=== PATIENT | female | born 1990 | race Caucasian/White ===

== ENCOUNTER 2021-11-04 12:08 | Emergency (ER) | payer OTHER, SELFPAY ==
[2021-11-04 12:11] VITALS: BP 115/69; PULSE 63; RESP 20; TEMP 36.6; O2SAT 100
[2021-11-04 12:50] LABS: Abs Immature Grans 0.01 10^3/uL (0.0-0.06); Absolute Basophil Count 0.04 10^3/uL (0.0-0.2); Absolute Eosinophil Count 0.09 10^3/uL (0.0-0.7); Absolute Lymphocyte Count 1.52 10^3/uL (1.2-3.4); Absolute Monocyte Count 0.51 10^3/uL (0.1-0.8); Absolute Neutrophil Count 2.69 10^3/uL (1.2-6.7); Basophils % 0.8; Eosinophils % 1.9; HCT 43.5 % (36.0-46.0); HGB 13.8 g/dL (11.2-15.7); Immature Grans % 0.2; Lymphocytes % 31.3; MCH 30.5 pg (27.0-33.0); MCHC 31.7 % (32.0-36.0); MCV 96.2 fL (80-95); MPV 10.5 fL (8.0-11.0); Monocytes % 10.5; Neutrophils % 55.3; Nucleated RBC 0 %; Platelet Count 205 10^3/uL (130-400); RBC 4.52 10^6/uL (3.93-5.22); RDW 13.1 % (11.7-14.6); RDW-SD 46.7 fL; WBC 4.86 10^3/uL (4.4-10.8)
[2021-11-04 12:51] LABS: Bilirubin Negative (Negative); Blood Large (Negative); Clarity Clear (Clear); Glucose Negative (Negative); Ketones Negative (Negative); Leukocyte Esterase Negative (Negative); Nitrite Negative (Negative); Specific Gravity >= 1.030 (1.005-1.025); Urobilinogen 0.2 EU/dL (Up TO 0.2); pH 6.5 (5-8)
[2021-11-04 12:59] LABS: Bacteria Negative HPF (Negative); C & S Indicated? No; Casts Negative LPF (Negative); Crystals Negative HPF (Negative); Epithelial Cells Few HPF (Negative); Mucus Negative (Negative); WBC 0-2 HPF (0-5)
[2021-11-04 13:06] LABS: ALT 28 U/L (14-59); AST 24 U/L (15-37); Albumin 4.5 g/dL (3.4-5.0); Alkaline Phosphatase 42 U/L (46-116); Anion Gap 8.8 mmol/L (3-11); BUN 12 mg/dL (7-18); Bilirubin, Total 1.3 mg/dL (0.2-1.0); CO2 27.2 mmol/L (21.0-32.0); CREATININE 0.9 mg/dL (0.55-1.02); Calcium 9.1 mg/dL (8.5-10.1); Chloride 104 mmol/L (98-107); Glucose 94 mg/dL (74-106); Potassium 3.7 mmol/L (3.5-5.1); Sodium 140 mmol/L (136-145); Total Protein 8.1 g/dL (6.4-8.2)
--- NOTE | 2021-11-04 13:30 | DI.US_ITS ---
Exam(s) US PELVIS TRANSVAGINAL EXAM: US PELVIS TRANSVAGINAL CLINICAL HISTORY: Excessive vaginal bleeding, confirmation of IUD TECHNIQUE: Transabdominal and transvaginal imaging was performed using standard protocol. COMPARISON: No exams were available for comparison FINDINGS: KIDNEYS: Kidneys are symmetric in size. No evidence of renal calculi. No evidence of hydronephrosis. No renal mass or cyst identified. UTERUS: Anteverted. 6.7 x 4.9 x 4 cm Endometrium: IUD. 8 millimeters in thickness. Myometrium: Unremarkable. Cervix: Nabothian cysts. OVARIES: Right: Cyst or mass: None. Left: Cyst or mass: None. DOPPLER: Color: Symmetric and uniform flow to both ovaries. No hyperemia. Duplex: Normal ovarian arterial waveforms visualized. CUL-DE-SAC: Free fluid: None. IMPRESSION: 1. Normal-appearing uterus. IUD appears appropriately positioned within the endometrial cavity. 2. Unremarkable bilateral ovaries. DATA REPOSITORY:
--- NOTE | 2021-11-04 14:15 | W.ED.GENAD ---
Discharge Plan Disposition Patient Disposition: HOME Condition: Stable Discharge Details Clinical Impression: Menorrhagia Primary Care Provider: None,None ED Provider: Pancho Garcia Home Meds and New Rx's Prescriptions: Continued ParaGard T 380A 380 square mm Intrauterine Device 1 device INTRAUTERINE ONCE 0RF Rx Instructions: as a single dose Discharge Instructions Instructions: Abnormal (Dysfunctional) Uterine Bleeding (ED) Additional Instructions: Please continue to monitor your symptoms and if you have any significant worsening of her symptoms, begin having lightheadedness, rapid heart rate, or syncope you should return immediately to the emergency department for reevaluation. Otherwise when you return home it is very important that you follow-up with gynecology for further evaluation of your vaginal bleeding. Discharge Data Discharge Date/Time-TO BE ENTERED AT DEPARTURE: 11/04/21 15:13 Medical Decision Making Patient presenting to the emergency department for chief complaint of vaginal bleeding. Patient reports that 12 days ago she started her normal menses which has been slightly heavier but typically stops at around 8 days. Patient does report that last month cycle seem to last about 10 days again which is longer. Patient states mild lower pelvic pain but no severe discomfort, no chest pain, shortness of breath, lightheadedness or syncope. Physical exam is unremarkable except for reported pain to deep palpation of the suprapubic area. Plan to check labs and status. Patient does report IUD in place but does state previous IUD did move causing significant vaginal discomfort at that time. IUD has been in place for almost 18 months. Reviewed labs that show no worrisome anemia, CMP showing nondiagnostic elevation of bilirubin and slightly low alk phos. Urinalysis show negative and noted blood otherwise again nondiagnostic. Patient has AB positive. Nursing assistant director of plant operations was present when vaginal exam was performed and showed dark red blood in the vaginal vault, no massive hemorrhaging, lacerations, or discharge consistent with STI. Plan to do ultrasound imaging for evaluation of IUD placement or any other abnormal findings. Ultrasound imaging reviewed and shows appropriate placement of IUD and otherwise nondiagnostic findings. Given that patient is not severely anemic and no worrisome findings on ultrasound I do feel that patient can follow-up on an outpatient basis. Patient is very reliable and states clear understanding of return and follow-up precautions for worsening symptoms. After discussion of diagnosis and plan of care patient has no further needs, questions, or concerns and states clear understanding to return to the emergency department for any worsening symptoms. Imaging Data Radiologic Study: Imaging: Ultrasound Radiologist's impression: IMPRESSION: 1. Normal-appearing uterus. IUD appears appropriately positioned within the endometrial cavity. 2. Unremarkable bilateral ovaries HPI General Mode of arrival: ambulatory. Date/Time Provider Initiated Documentation: 11/04/21 12:18. Limitations to Documentation: no limitations. Information obtained by: patient. History of Present Illness 31 year old F presents to the emergency department with the chief complaint of Prolonged heavy menstrual bleeding, described as mild, with intensity rated at 1. 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 Review of Systems Constitutional Constitutional: Denies chills and Denies fever(s) Cardiovascular Cardiovascular: Denies chest pain, Denies syncope and Denies dyspnea Respiratory Respiratory: Denies dyspnea Gastrointestinal Gastrointestinal: Denies abdominal pain, Denies diarrhea, Denies nausea and Denies vomiting Genitourinary Genitourinary: Reports as per HPI, Reports abnormal menses, Reports abnormal vaginal bleeding, Denies metrorrhagia, Denies hematuria, Denies genital lesions, Reports menorrhagia, Reports dyspareunia, Reports dysmenorrhea and Denies dysuria Integumentary/Breasts Skin/Breast: Denies rash and Denies sores Neurologic Neurologic: Denies syncope Hematologic/Lymphatic Hematologic/Lymphatic: Denies easy bleeding and Denies easy bruising PFSH All Active Problems Menorrhagia (Acute) Social History Smoking/Tobacco Use Status: Never Smoking risk assessment performed?: Yes Alcohol Intake: current Alcohol Intake frequency: a few times a month Drug use: Rarely Substance use type: marijuana Do you feel safe at home: Yes Do you feel safe in your relationship?: Yes Exam Const General: cooperative and no acute distress Orientation: alert, awake and oriented x3 Resp Effort & Inspection: normal respiratory effort and able to speak in complete sentences Auscultation: clear to auscultation bilaterally Cardio Rate: regular rate Rhythm: regular rhythm Heart Sounds: S1 normal and S2 normal GI Palpation: nontender External Female Exam: normal external appearance and normal appearance of the urethra Speculum Exam - Vagina: normal appearance of the vagina, abnormal vaginal discharge bloody (dark red), no cysts, not erythematous, no lacerations and other (Performed with RN assistant director of plant operations in room) Speculum Exam - Cervix: normal appearance of the cervix Back/Spine/Pelvis Back: no CVA tenderness Skin Lesions: no lesions Rashes: no rashes Trauma: no lacerations or abrasions Neuro General: patient alert, patient awake and patient oriented x3 Extrem General: capillary refill normal Course Vital Signs Vital signs: Vital Signs Temperature 36.6 C 11/04/21 12:11 Pulse 63 11/04/21 12:11 Respiratory Rate 20 11/04/21 12:11 Blood Pressure 115/69 11/04/21 12:11 Pulse Oximetry 100 11/04/21 12:11 Temperature 36.6 C 11/04/21 12:11 Temperature Source Temporal Artery Scan 11/04/21 12:11 Pulse 63 11/04/21 12:11 Respiratory Rate 20 11/04/21 12:11 Respiratory Effort 11/04/21 12:17 Blood Pressure 115/69 11/04/21 12:11 Blood Pressure Position Sitting 11/04/21 12:11 Pulse Oximetry 100 11/04/21 12:11 Oxygen Delivery Method Room Air 11/04/21 12:11 Oxygen Flow Rate 0 11/04/21 12:11 Pain Level 1 11/04/21 12:29 Lab/Test Results Lab/Test Results: Laboratory Tests Range/Units 11/04/21 11/04/21 11/04/21 12:25 12:25 12:25 WBC (4.4-10.8) 10^3/uL 4.86 RBC (3.93-5.22) 10^6/uL 4.52 Hgb (11.2-15.7) g/dL 13.8 Hct (36.0-46.0) % 43.5 MCV (80-95) fL 96.2 H MCH (27.0-33.0) pg 30.5 MCHC (32.0-36.0) % 31.7 L RDW (11.7-14.6) % 13.1 Plt Count (130-400) 10^3/uL 205 MPV (8.0-11.0) fL 10.5 Immature Gran % 0.2 Neutrophils % 55.3 Lymphocytes % 31.3 Monocytes % 10.5 Eosinophils % 1.9 Basophils % 0.8 Nucleated RBC % % 0 Absolute Neutrophils (1.2-6.7) 10^3/uL 2.69 Absolute Lymphocytes (1.2-3.4) 10^3/uL 1.52 Absolute Monocytes (0.1-0.8) 10^3/uL 0.51 Absolute Eosinophils (0.0-0.7) 10^3/uL 0.09 Absolute Basophils (0.0-0.2) 10^3/uL 0.04 Sodium (136-145) mmol/L 140 Potassium (3.5-5.1) mmol/L 3.7 Chloride (98-107) mmol/L 104 Carbon Dioxide (21.0-32.0) mmol/L 27.2 Anion Gap (3-11) mmol/L 8.8 BUN (7-18) mg/dL 12 Creatinine (0.55-1.02) mg/dL 0.9 Estimated GFR/1.73 m2 (mL/min/1.73m2) >= 60.00 Glucose (74-106) mg/dL 94 Calcium (8.5-10.1) mg/dL 9.1 Total Bilirubin (0.2-1.0) mg/dL 1.3 H AST (15-37) U/L 24 ALT (14-59) U/L 28 Alkaline Phosphatase (46-116) U/L 42 L Total Protein (6.4-8.2) g/dL 8.1 Albumin (3.4-5.0) g/dL 4.5 Urine Color (Yellow) Urine Clarity (Clear) Urine pH (5-8) Ur Specific [place] (1.005-1.025) Urine Protein (Negative) mg/dL Urine Ketones (Negative) mg/dL Urine Blood (Negative) Urine Nitrite (Negative) Urine Bilirubin (Negative) Urine Urobilinogen (Up TO 0.2) EU/dL Ur Leukocyte Esterase (Negative) Urine RBC (0-2) HPF Urine WBC (0-5) HPF Ur Epithelial Cells (Negative) HPF Urine Crystals (Negative) HPF Urine Bacteria (Negative) HPF Urine Casts (Negative) LPF Urine Mucus (Negative) Ur Culture Indicated? Urine Glucose (Negative) mg/dL Patient ABO/Rh AB Positive Antibody Screen NEGATIVE Range/Units 11/04/21 12:35 WBC (4.4-10.8) 10^3/uL RBC (3.93-5.22) 10^6/uL Hgb (11.2-15.7) g/dL Hct (36.0-46.0) % MCV (80-95) fL MCH (27.0-33.0) pg MCHC (32.0-36.0) % RDW (11.7-14.6) % Plt Count (130-400) 10^3/uL MPV (8.0-11.0) fL Immature Gran % Neutrophils % Lymphocytes % Monocytes % Eosinophils % Basophils % Nucleated RBC % % Absolute Neutrophils (1.2-6.7) 10^3/uL Absolute Lymphocytes (1.2-3.4) 10^3/uL Absolute Monocytes (0.1-0.8) 10^3/uL Absolute Eosinophils (0.0-0.7) 10^3/uL Absolute Basophils (0.0-0.2) 10^3/uL Sodium (136-145) mmol/L Potassium (3.5-5.1) mmol/L Chloride (98-107) mmol/L Carbon Dioxide (21.0-32.0) mmol/L Anion Gap (3-11) mmol/L BUN (7-18) mg/dL Creatinine (0.55-1.02) mg/dL Estimated GFR/1.73 m2 (mL/min/1.73m2) Glucose (74-106) mg/dL Calcium (8.5-10.1) mg/dL Total Bilirubin (0.2-1.0) mg/dL AST (15-37) U/L ALT (14-59) U/L Alkaline Phosphatase (46-116) U/L Total Protein (6.4-8.2) g/dL Albumin (3.4-5.0) g/dL Urine Color (Yellow) Yellow Urine Clarity (Clear) Clear Urine pH (5-8) 6.5 Ur Specific [place] (1.005-1.025) >= 1.030 H Urine Protein (Negative) mg/dL Negative Urine Ketones (Negative) mg/dL Negative Urine Blood (Negative) Large H Urine Nitrite (Negative) Negative Urine Bilirubin (Negative) Negative Urine Urobilinogen (Up TO 0.2) EU/dL 0.2 Ur Leukocyte Esterase (Negative) Negative Urine RBC (0-2) HPF 3-5 H Urine WBC (0-5) HPF 0-2 Ur Epithelial Cells (Negative) HPF Few Urine Crystals (Negative) HPF Negative Urine Bacteria (Negative) HPF Negative Urine Casts (Negative) LPF Negative Urine Mucus (Negative) Negative Ur Culture Indicated? No Urine Glucose (Negative) mg/dL Negative Patient ABO/Rh Antibody Screen POC- Test(urine) Negative PAWSS Have you Been Recently Intoxicated or Drunk Within the Last 30 days?: No Have you Ever Experienced Previous Episodes of Alcohol Withdrawal?: No Have you ever Experienced Withdrawal Seizures?: No Have you ever Experienced Delirium Tremens(DT)s?: No Have you ever undergone Alcohol Rehabilitation Treatment (i.e, inpt ot outpatient treatment programs)?: No Have you ever Experienced Blackouts?: No Have you ever Combined Alcohol with other Downers within the last 90 days?: No Have you ever Combined Alcohol with any other Substance of Abuse during the last 90 days?: No Positive Blood Alcohol level on Presentation? [PCS.BAL]: No Evidence of Increased Autonomic Activity (i.e. HR>120, tremor, sweating, agitation, nausea)?: No Result: 0
[2021-11-04 15:11] VITALS: BP 112/70; PULSE 65; RESP 18; TEMP 36.8; O2SAT 100
== END 2021-11-04 15:13 | disposition home or self-care (01) ==
PROVIDERS: Emergency Provider Nurse Practitioner Family
DX: N92.0 Excessive and frequent menstruation with regular cycle (principal)
CPT/HCPCS: 36415; 80053; 81025; 86850; 86900; 86901; 99284; 76830; 76856; 81003; 81015; 85025; 99283